=== PATIENT | female | born 2000 | race Two or more races ===

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

== ENCOUNTER 2018-03-11 21:45 | Emergency (ER) | payer OTHER ==
[2018-03-11 21:52] VITALS: BP 125/82; PULSE 67; TEMP 98.4; BMI 23.8
--- NOTE | 2018-03-11 22:10 | PDOC ---
History of Present Illness - General Chief Complaint: Ear Problem Stated Complaint: Ear Problem Time Seen by Provider: 03/11/18 22:04 - History of Present Illness Initial Comments: 17-year-old female presents for evaluation of right ear pain times no other associated symptoms. She feels her was wisdome teeth may be coming in 03/11/18 22:07 Past History - Past Medical History Allergies/Adverse Reactions: Allergies Allergy/AdvReac Type Severity Reaction Status Date / Time No Known Allergies Allergy Verified 01/13/17 12:43 Home Medications: Ambulatory Orders NK [No Known Home Medication] 01/24/14 Thyroid Disease: Yes (Hypo) - Immunization History Immunization Up to Date: Yes - Suicide/Smoking/Psychosocial Hx Smoking History: Never smoked Have you smoked in the past 12 months: No Information on smoking cessation initiated: No Hx Alcohol Use: No Drug/Substance Use Hx: No Substance Use Type: None Review of Systems - Review of Systems HEENTM: Yes: See HPI, Eye Pain All Other Systems: Reviewed and Negative *Physical Exam - Vital Signs Last Vital Signs Temp Pulse Resp BP Pulse Ox 98.4 F 67 16 125/82 100 03/11/18 21:50 03/11/18 21:50 03/11/18 21:50 03/11/18 21:50 03/11/18 21:50 - Physical Exam Comments: HEAD: NC/AT EYES: Conjuntiva clear Ears: Canals and TM's normal NOSE: No d/c THROAT: Moist mucous membrances, oral pharanx clear, uvula midline, right lower molar is coming through. NECK: Supple without adenopathy CARDIAC: S1 S2 LUNGS: CTA Full and Equal breath sounds ABDOMEN: Soft NT ND MS: Full ROM in all joints without edema NEUROLOGIC: No gross sensory or motor deficits, NVID SKIN: Normal color and temperature no lesions or rashes 03/11/18 22:08 *DC/Admit/Observation/Transfer Diagnosis at time of Disposition: Pain of molar - Discharge Dispostion Disposition: HOME Condition at time of disposition: Stable Decision to Admit order: No - Referrals Referrals: Regis De La Torre MD [Primary Care Provider] - Josh Langley MD [Non Staff, Medical] - Manuel Uribe [Non Staff, Medical] - Davion Serrano [Non Staff, Medical] - Eriberto Wilson [Non Staff, Medical] - Jacobo Koenig MD [Non Staff, Medical] - Jose Yañez DMD [Non Staff, Medical] - Manolo Villatoro [Other Staff,non-medical] - Arnav Fernandez MD [Non Staff, Medical] - Manolo Rojo [Staff Physician] - Greg Humphrey [Staff Physician] - - Patient Instructions Additional Instructions: Take Tylenol and Motrin as directed for pain. I've given you a list of local oral surgeons. Please follow-up with oral surgeon once 2 days for further evaluation and treatment options. Return to the emergency room should symptoms worsen or go unresolved. - Post Discharge Activity
== END 2018-03-11 22:18 | disposition home or self-care (01) ==
LOC: JERFT 21:45
DX: K08.89 Other specified disorders of teeth and supporting structures (principal)
CPT/HCPCS: 99281-25

== ENCOUNTER 2023-03-18 19:34 | Observation (INO) | payer OTHER ==
[2023-03-18 19:47] VITALS: BMI 23.8
[2023-03-18] MEDS ORDERED: ACETAMINOPHEN INJECTION 100 ML IVPB ONE (21:58)
[2023-03-18] MEDS ORDERED: ACETAMINOPHEN 1000 MG/100 ML BAG IVPB ONE (22:01)
[2023-03-18 22:56] LABS: BASO % 0.4 % (0-2.0); EOS % 0.7 % (0-4.5); HEMATOCRIT 36.8 % (32.4-45.2); HEMOGLOBIN 12.8 GM/dL (10.7-15.3); LYMPH % 12.8 % (8-40); MCH 31.8 pg (25.7-33.7); MCHC 34.7 g/dl (32.0-36.0); MEAN CELL VOLUME 91.5 fl (80-96); MEAN PLT VOLUME 8.5 fl (7.5-11.1); NEUT % 78.1 % (42.8-82.8); PLATELET COUNT 325 10^3/uL (134-434); RBC 4.02 M/mm3 (3.60-5.2); RDW 14.4 % (11.6-15.6); WHITE BLOOD COUNT 6.6 K/mm3 (4.0-10.0)
[2023-03-18 23:05] LABS: POTASSIUM 4.1 mmol/L (3.5-5.1)
[2023-03-18 23:08] LABS: ALBUMIN 4.2 g/dl (3.4-5.0); CALCIUM 9.1 mg/dL (8.5-10.1)
[2023-03-18 23:11] LABS: CREATININE 0.7 mg/dL (0.55-1.3)
[2023-03-18 23:12] LABS: TOT PROT 8.3 g/dl (6.4-8.2)
[2023-03-18] MEDS ORDERED: KETOROLAC TROMETHAMINE 30 MG/1 ML VIAL IVPUSH ONE (23:36)
[2023-03-18] MEDS ORDERED: KETOROLAC TROMETHAMINE 30 MG/1 ML VIAL ONE (23:41)
[2023-03-19] MEDS ORDERED: PIPERACILLIN/TAZOB 2.25 GM 2.25 GM in DEXTROSE 5%-WATER - 50 ML IVPB ONE (00:40)
[2023-03-19] MEDS ORDERED: PIPERACILLIN/TAZOB 2.25 GM 2.25 GM/50 ML BAG IVPB ONE (00:50)
[2023-03-19 01:56] LABS: URINE APPEARANCE CLEAR; URINE BILIRUBIN 2+ (NEGATIVE); URINE COLOR DK YELLOW; URINE GLUCOSE (UA) NEGATIVE (NEGATIVE); URINE KETONE NEGATIVE (NEGATIVE); URINE LEUK ESTERASE NEGATIVE (NEGATIVE); URINE NITRITE NEGATIVE (NEGATIVE); URINE PROTEIN NEGATIVE (NEGATIVE)
[2023-03-19 04:23] VITALS: BP 115/70; PULSE 51; RESP 18; TEMP 98.3
== END 2023-03-19 04:20 | disposition short-term general hospital (02) ==
LOC: JER 19:34 → JERBED 03-19 02:32
PROVIDERS: ADMIT Internal Medicine; ATTEND Internal Medicine
PROC: 3E033NZ Introduction of Analgesics, Hypnotics, Sedatives into Peripheral Vein, Percutaneous Approach (ICD-10-PCS; principal; 2023-03-19)
PROC: 3E03329 Introduction of Other Anti-infective into Peripheral Vein, Percutaneous Approach (ICD-10-PCS; 2023-03-19)
PROC: 3E0333Z Introduction of Anti-inflammatory into Peripheral Vein, Percutaneous Approach (ICD-10-PCS; 2023-03-19)
DX: K80.50 Calculus of bile duct without cholangitis or cholecystitis without obstruction (principal); K80.00 Calculus of gallbladder with acute cholecystitis without obstruction; R74.01 Elevation of levels of liver transaminase levels
CPT/HCPCS: 0241U-QW; 36415; 74176-TC; 76705-TC; 80053; 81003; 82150; 83690; 84703; 85025; 93005; 93010; 96365; 96375; 99285-25; G0378